=== PATIENT | male | born 1950 | race Caucasian/White ===

== ENCOUNTER 2024-09-22 11:13 | Day surgery (SDC) | payer MEDICARE, OTHER ==
[~2024-09-22] VITALS: Ht 188 cm; Wt 82.4 kg
[2024-09-22] VITALS (9 sets, daily range): BP systolic 119–165; BP diastolic 65–93
[~2024-09-22 11:13] MED LIST: CeFAZolin Sodium 2,000 MG in NS 100 ML IV SCH; Ferrous Sulfate PO; Lactated Ringer's 1,000 ML IV SCH; NAPR220 PO; Prinivil10 MG PO
[2024-09-22] MEDS ORDERED: MIRALAX17 GM (11:32)
--- NOTE | 2024-09-22 12:10 | NUR ---
Ambulatory in Day SurgeryPre-Op teaching done. Pt verbalizes understanding. History, Chart, Medications and Allergies reviewed before start of procedure.Patient confirms NPO status and agrees with scheduled surgery. Patient reports completing Chlorhexadine shower X2 prior to admission to hospital.Patient States Post-Procedure ride home has been arranged.
[2024-09-22] MEDS ORDERED: FentaNYL Citrate 50 MCG/ML 2 ML Injection ONE (12:43)
[2024-09-22] MEDS ORDERED: propofoL 20 ML IV ONE (12:43)
[2024-09-22] MEDS ORDERED: Bupivacaine 0.5% Inj 10 ML Vial ONE (12:47)
[2024-09-22] MEDS ORDERED: Albuterol 2.5 MG/3 ML VIAL INH PRN (13:00)
[2024-09-22] MEDS ORDERED: FentaNYL Citrate 50 MCG/ML 2 ML Injection IV PRN ×3 (13:00→13:05)
[2024-09-22] MEDS ORDERED: Labetalol HCL 5 MG/ML 4ML Injection (Single Dose) IV PRN (13:05)
[2024-09-22] MEDS ORDERED: Ondansetron HCl 2 MG / ML 2ML Vial IV PRN (13:05)
[2024-09-22] MEDS ORDERED: Dexamethasone Sod Phos 10 MG/ML 1ML VIAL ONE (13:06)
[2024-09-22] MEDS ORDERED: Ondansetron HCl 2 MG / ML 2ML Vial ONE (13:06)
[2024-09-22] MEDS ORDERED: Ketorolac Tromethamine 30mg Vial ONE (13:17)
[2024-09-22] MEDS ORDERED: ePHEDrine Sulfate 50 MG/ML 1ML Injection ONE (13:25)
[2024-09-22] MEDS ORDERED: HYDROcodone 5-APAP 325 TAB PO PRN (14:50)
--- NOTE | 2024-09-22 16:09 | NUR ---
REPORT FROM FABBY POND, AT 1530. PT SITTING UP DRINKING WATER & EATING YOGURT W/O COMPLAINT. VSS, ON RA. PT DENIES PAIN/NAUSEA. PT'S AT BEDSIDE. D/C INSTRUCTIONS GIVEN TO PT & PT'S , UNDERSTANDING VERBALIZED. PT BELONGINGS RETURNED TO PT. PT WHEELED TO MAIN ENTRANCE WHERE HE WILL BE DRIVEN HOME BY IN PRIVATE VEHICLE. STEADY GAIT NOTED UPON TRANSFER FROM TO VEHICLE. NO VISIBLE SIGNS OF DISTRESS NOTED.
== END 2024-09-22 23:01 | disposition home or self-care (01) ==
LOC: ORSCMMR 11:13
PROVIDERS: Surgery
PROC: 0YU60JZ Supplement Left Inguinal Region with Synthetic Substitute, Open Approach (ICD-10-PCS; principal; 2024-09-22 13:00)
DX: K40.90 Unilateral inguinal hernia, without obstruction or gangrene, not specified as recurrent (principal); I10 Essential (primary) hypertension; Z79.899 Other long term (current) drug therapy
CPT/HCPCS: C1781; J0690; J1100; J1885; J2405; J2704; J3010; J7120

== ENCOUNTER 2025-03-22 11:46 | Day surgery (SDC) | payer MEDICARE, OTHER ==
[~2025-03-22] VITALS: Ht 188 cm; Wt 74.1 kg
[2025-03-22] VITALS (24 sets, daily range): BP systolic 104–159; BP diastolic 62–86
[~2025-03-22 11:46] MED LIST changes: +BISA5EC PO; -CeFAZolin Sodium 2,000 MG in NS 100 ML IV SCH; -Lactated Ringer's 1,000 ML IV SCH; +MIRALAX17 GM
--- NOTE | 2025-03-22 12:49 | NUR ---
Ambulatory in Day Surgery. History, Chart, Medications and Allergies reviewed before start of procedure. Patient confirms NPO status and agrees with scheduled surgery. Pre-Op teaching done. Pt verbalizes understanding. Patient States Post-Procedure ride home has been arranged.
--- NOTE | 2025-03-22 13:29 | NUR ---
03/22/25 0219 Adenike Oliver CONFIRMED AND REVIEWED H&P, MEDCICATIONS, ALLERGIES, MEDICAL HISTORY, RESPIRATORY HISTORY, VITAL SIGNS, 3-LEAD EKG, CONSENTS, AND PHYSICIAN ORDERS. PATIENT CONFIRMS NPO STATUS AND AGREES WITH SCHEDULED PROCEDURE. MONITOR INTACT WITH CONTINUOUS PULSE OXIMETRY, CAPNOGRAPHY, 3-LEAD EKG, INTERMITTENT BP. SUPPLEMENTAL O2 TO BE TITRATED THROUGHOUT PROCEDURE TO MAINTAIN O2 SATURATION ABOVE 90%. PATIENT DETERMINED TO BE ASA APPROPRIATE FOR PROPOFOL SEDATION PRIOR TO START OF PROCEDURE BY DR. ALEXIS.
--- NOTE | 2025-03-22 14:55 | NUR ---
Patient up to Ambulate independently. Gait stEADY. Discharge instructions reviewed with patient. Patient verbalizes understanding. Copy given to patient to take home. Patient States Post-Procedure ride home has been arranged. Discharged via wheelchair to private car for ride home. ALL BELONINGS RETURNED TO PATIENT WITH GLASSES ON FACE.
== END 2025-03-22 22:00 | disposition home or self-care (01) ==
LOC: ORSCMMR 11:46 → ORD 13:15 → ORSCMMR 22:00
PROVIDERS: Family Medicine
PROC: 0DJD8ZZ Inspection of Lower Intestinal Tract, Via Natural or Artificial Opening Endoscopic (ICD-10-PCS; principal; 2025-03-22 13:15)
PROC: 0DB48ZX Excision of Esophagogastric Junction, Via Natural or Artificial Opening Endoscopic, Diagnostic (ICD-10-PCS; principal; 2025-03-22 13:15)
PROC: 0DB78ZX Excision of Stomach, Pylorus, Via Natural or Artificial Opening Endoscopic, Diagnostic (ICD-10-PCS; principal; 2025-03-22 13:15)
DX: R63.4 Abnormal weight loss (principal); Z86.0100 Personal history of colon polyps, unspecified; K29.70 Gastritis, unspecified, without bleeding; K44.9 Diaphragmatic hernia without obstruction or gangrene; K29.80 Duodenitis without bleeding; K64.0 First degree hemorrhoids; K57.30 Diverticulosis of large intestine without perforation or abscess without bleeding; E78.5 Hyperlipidemia, unspecified; N40.1 Benign prostatic hyperplasia with lower urinary tract symptoms; I10 Essential (primary) hypertension; Z79.899 Other long term (current) drug therapy
CPT/HCPCS: 88305; 88342; J0461; J2704; J7120